=== PATIENT | female | born 1970 | race African-American/Black ===

== ENCOUNTER 2016-09-11 00:22 | Emergency (ER) | payer OTHER ==
[~2016-09-11 00:22] MED LIST: AMLO10TA2 PO; ASPI1TAB69 PO; CARV25TA PO; FURO1TAB62 PO; LISI40TA PO; POTA10TA2 PO
[2016-09-11 00:25] VITALS: BP 139/82; PULSE 66; RESP 18; TEMP 98.6; O2SAT 97
--- NOTE | 2016-09-11 01:25 | PD ---
HPI Chief Complaint: Cardiac Complaint Time Seen by Provider: 01:25 Travel History International Travel<30 days: No Contact w/Intl Traveler<30days: No Traveled to known affect area: No History of Present Illness HPI 46-year-old female came to the emergency room with history of chest pain, difficulty breathing because she thinks she is in congestive heart failure. Patient has history of congestive heart failure and says that she is been unable to fill her blood pressure medication and Lasix prescription since she does not have a primary care doctor. Her vital signs were stable in the ER. She did not look to be in any severe distress. Pain is nonradiating and substernal. No associated diaphoresis or syncopal episode. PFSH Past Medical History Narrative Medical List of her past medical history as reviewed from the nursing note. Hx Anticoagulant Therapy: Yes (81 ASA) Anxiety: No Depression: No Heart Rhythm Problems: No Cardiac Catheterization: No Cardiovascular Problems: Yes (CHF) High Cholesterol: Yes Chemotherapy: No Chest Pain: No Congestive Heart Failure: Yes COPD: Yes Diabetes: No Diminished Hearing: No Endocrine: No Genitourinary: No Hypertension: Yes Immune Disorder: No Musculoskeletal: No Neurologic: No Psychiatric: No Reproductive: No Respiratory: Yes (COPD) Radiation Therapy: No Sleep Apnea: No Thyroid Disease: No Past Surgical History Coronary Artery Bypass Graft: No Other Surgery: No Social History Alcohol Use: Yes (OCCASIONALLY) Tobacco Use: Yes (< 1/2 PPD) Substance Use: No Allergies-Medications (Allergen,Severity, Reaction): Coded Allergies: No Known Allergies (Verified , 06/09/16) Comments No known drug allergies. Reported Meds & Prescriptions Reported Meds & Active Scripts Active Potassium Chloride ER (Potassium Chloride) 10 Meq Tab 10 Meq PO DAILY Carvedilol 25 Mg Tab 25 Mg PO BID Amlodipine (Amlodipine Besylate) 10 Mg Tab 10 Mg PO DAILY Reported Carvedilol 25 Mg Tab 25 Mg PO BID Aspirin 81 Mg Tabdr 81 Mg PO DAILY Lasix (Furosemide) 20 Mg Tab 20 Mg PO DAILY Lisinopril 40 Mg Tab 40 Mg PO DAILY Amlodipine (Amlodipine Besylate) 10 Mg Tab 10 Mg PO BID Narrative Medication List of her home medications reviewed from the nursing note. Review of Systems Except as stated in HPI: all other systems reviewed are Neg Physical Exam Narrative GENERAL: Awake, alert, obese, no obvious distress SKIN: Warm and dry. HEAD: Atraumatic. Normocephalic. EYES: Pupils equal and round. No scleral icterus. No injection or drainage. ENT: No nasal bleeding or discharge. Mucous membranes pink and moist. NECK: Trachea midline. No JVD. CARDIOVASCULAR: Regular rate and rhythm. No murmur appreciated. RESPIRATORY: No accessory muscle use. Clear to auscultation. Breath sounds equal bilaterally. GASTROINTESTINAL: Abdomen soft, non-tender, nondistended. Hepatic and splenic margins not palpable. MUSCULOSKELETAL: No obvious deformities. No clubbing. No cyanosis. No edema. NEUROLOGICAL: Awake and alert. No obvious cranial nerve deficits. Motor grossly within normal limits. Normal speech. PSYCHIATRIC: Appropriate mood and affect; insight and judgment normal. Data Data Last Documented VS Vital Signs Date Time Temp Pulse Resp B/P Pulse Ox O2 Delivery O2 Flow Rate FiO2 09/11/16 01:40 99 Room Air 09/11/16 01:35 73 18 127/75 09/11/16 00:25 98.6 Orders Electrocardiogram (09/11/16 00:46) Basic Metabolic Panel (Bmp) (09/11/16 01:34) B-Type Natriuretic Peptide (09/11/16 01:34) Ckmb (Isoenzyme) Profile (09/11/16 01:34) Complete Blood Count With Diff (09/11/16 01:34) Magnesium (Mg) (09/11/16 01:34) Prothrombin Time / Inr (Pt) (09/11/16 01:34) Act Partial Throm Time (Ptt) (09/11/16 01:34) Troponin I (09/11/16 01:34) Chest, Single Ap (09/11/16 01:34) Ecg Monitoring (09/11/16 01:34) Bilateral Bp Monitoring (09/11/16 01:34) Iv Access Insert/Monitor (09/11/16 01:34) Oximetry (09/11/16 01:34) Oxygen Administration (09/11/16 01:34) Aspirin Chew (Aspirin Chew) (09/11/16 01:45) Sodium Chloride 0.9% Flush (Ns Flush) (09/11/16 01:45) Drug Screen, Random Urine (09/11/16 01:35) CKMB (09/11/16 01:44) CKMB% (09/11/16 01:44) Labs Laboratory Tests Test 09/11/16 01:44 White Blood Count 8.7 TH/MM3 Red Blood Count 4.36 MIL/MM3 Hemoglobin 13.4 GM/DL Hematocrit 39.0 % Mean Corpuscular Volume 89.4 FL Mean Corpuscular Hemoglobin 30.7 PG Mean Corpuscular Hemoglobin 34.4 % Concent Red Cell Distribution Width 15.1 % Platelet Count 207 TH/MM3 Mean Platelet Volume 9.3 FL Neutrophils (%) (Auto) 63.0 % Lymphocytes (%) (Auto) 22.2 % Monocytes (%) (Auto) 9.7 % Eosinophils (%) (Auto) 4.5 % Basophils (%) (Auto) 0.6 % Neutrophils # (Auto) 5.5 TH/MM3 Lymphocytes # (Auto) 1.9 TH/MM3 Monocytes # (Auto) 0.8 TH/MM3 Eosinophils # (Auto) 0.4 TH/MM3 Basophils # (Auto) 0.1 TH/MM3 CBC Comment DIFF FINAL Differential Comment Prothrombin Time 11.4 SEC Prothromb Time International 1.0 RATIO Ratio Activated Partial 27.6 SEC Thromboplast Time Sodium Level 140 MEQ/L Potassium Level 3.3 MEQ/L Chloride Level 104 MEQ/L Carbon Dioxide Level 28.4 MEQ/L Anion Gap 8 MEQ/L Blood Urea Nitrogen 26 MG/DL Creatinine 1.13 MG/DL Estimat Glomerular Filtration 63 ML/MIN Rate Random Glucose 99 MG/DL Calcium Level 9.2 MG/DL Magnesium Level 2.2 MG/DL Total Creatine Kinase 106 U/L Creatine Kinase MB 1.2 NG/ML Troponin I 0.02 NG/ML B-Type Natriuretic Peptide 25 PG/ML Urine Opiates Screen NEG Urine Barbiturates Screen NEG Urine Amphetamines Screen NEG Urine Benzodiazepines Screen NEG Urine Cocaine Screen POS Urine Cannabinoids Screen NEG MDM Medical Decision Making Medical Screen Exam Complete: Yes Emergency Medical Condition: Yes Medical Record Reviewed: Yes Interpretation(s) Twelve-lead EKG was reviewed by me. Normal sinus rhythm, LVH, left axis deviation, LV strain pattern, long QTC, interventricular conduction delay unchanged from April 2016. Heart rate of 69 bpm. Differential Diagnosis ACS, non-STEMI, CHF Narrative Course 2:18 AM awaiting for the blood test results and the chest x-ray to be done and resulted. 2:50 AM patient has been admitted in the past few times for chest pain and had stress test done which were negative. Her cardiac enzymes are negative today. She did test positive for cocaine. I'm going to discharge her home. In my opinion, this chest pain is related to her cocaine abuse. Procedures EKG Prior to Arrival: Yes Diagnosis Primary Impression: cocaine induced chest pain Additional Impression: Cocaine abuse Referrals: Primary Care Physician 2 days Additional Instructions: To have cardiomyopathy and cocaine is extremely harmful and even fatal with such condition. Please follow-up with your primary care. Med/Other Pt SpecificInfo: No Change to Meds Disposition: 01 DISCHARGE HOME Condition: Stable Darek Pickett MD Sep 11, 2016 01:25
[2016-09-11 01:35] VITALS: BP 127/75; PULSE 73; RESP 18; O2SAT 99
[2016-09-11 01:40] VITALS: O2SAT 99
[2016-09-11] MEDS ORDERED: SODIUM CHLORIDE 0.9% FLUSH 5 ML FLUSH IVF PRN (01:45)
[2016-09-11] MEDS ORDERED: ASPIRIN 81 MG CHEW TAB PO ONE (01:45)
[2016-09-11 02:06] LABS: AUTOMATED NEUTROPHIL # 5.5 TH/MM3 (1.8-7.7); BASOPHIL # 0.1 TH/MM3 (0-0.2); BASOPHIL % 0.6 % (0.0-2.0); EOSINOPHIL # 0.4 TH/MM3 (0-0.4); EOSINOPHIL % 4.5 % (0.0-4.0); HEMO FLAGS DIFF FINAL; LYMPH % 22.2 % (9.0-44.0); LYMPHOCYTE # 1.9 TH/MM3 (1.0-4.8); MEAN CELL VOLUME 89.4 FL (80.0-100.0); MEAN CORPUSCULAR HEMOGLOBIN 30.7 PG (27.0-34.0); MEAN CORPUSCULAR HGB CONC 34.4 % (32.0-36.0); MONO % 9.7 % (0.0-8.0); PLATELET COUNT 207 TH/MM3 (150-450); RED BLOOD COUNT 4.36 MIL/MM3 (4.00-5.30); RED CELL DISTRIBUTION WIDTH 15.1 % (11.6-17.2); WHITE BLOOD COUNT 8.7 TH/MM3 (4.0-11.0)
[2016-09-11 02:08] LABS: AMPHETAMINE, URINE NEG (NEG); BARBITURATES, URINE NEG (NEG); COCAINE, URINE POS (NEG)
[2016-09-11 02:09] LABS: APTT (PATIENT) 27.6 SEC (24.3-30.1); PROTHROMBIN TIME - PATIENT 11.4 SEC (9.8-11.6)
[2016-09-11 02:15] LABS: ANION GAP 8 MEQ/L (5-15); BICARBONATE 28.4 MEQ/L (21.0-32.0); BLOOD UREA NITROGEN 26 MG/DL (7-18); CHLORIDE 104 MEQ/L (98-107); GLOMERULAR FILTRATION RATE 63 ML/MIN (>89); MAGNESIUM 2.2 MG/DL (1.5-2.5); POTASSIUM 3.3 MEQ/L (3.5-5.1); SODIUM (NA) 140 MEQ/L (136-145)
[2016-09-11 02:18] LABS: CREATINE KINASE 106 U/L (26-192)
[2016-09-11 02:32] LABS: CKMB 1.2 NG/ML (0.5-3.6)
--- NOTE | 2016-09-11 02:34 | RADRPT ---
EXAM DATE/TIME: 09/11/2016 01:59 [facility] COMPARISON: CHEST SINGLE AP, June 09, 2016, 13:36. INDICATIONS : Chest pain. MEDICAL HISTORY : None. SURGICAL HISTORY : None. ENCOUNTER: Initial ACUITY: 1 day PAIN SCORE: 4/10 LOCATION: chest substernal. FINDINGS: A single view of the chest demonstrates the lungs to be symmetrically aerated without evidence of mas s, infiltrate or effusion. No evidence of pneumothorax. The cardiomediastinal contours are unremark able. Osseous structures are intact. CONCLUSION: The lungs are clear. Julian Crodova MD on September 11, 2016 at 2:31 Board Certified Radiologist. This report was verified electronically.
--- NOTE | 2016-09-11 14:39 | EKG ---
Date Performed: 09/11/2016 Time Performed: 00:45:44 PTAGE: 46 years EKG: Sinus rhythm INTRAVENTRICULAR CONDUCTION DELAY LEFT VENTRICULAR HYPERTROPHY AND ST-T CHANGE ABNORMAL ECG Since PREVIOUS TRACING , no significant change noted DOCTOR: Carola Schuler Interpretating Date/Time 09/11/2016 14:35:11
== END 2016-09-11 03:08 | disposition home or self-care (01) ==
LOC: NEPC 00:22
DX: R07.9 Chest pain, unspecified (principal); R94.31 Abnormal electrocardiogram [ECG] [EKG]; I50.9 Heart failure, unspecified; E78.00 Pure hypercholesterolemia, unspecified; J44.9 Chronic obstructive pulmonary disease, unspecified; I10 Essential (primary) hypertension; F14.10 Cocaine abuse, uncomplicated; F17.210 Nicotine dependence, cigarettes, uncomplicated; Z79.82 Long term (current) use of aspirin
CPT/HCPCS: 71010; 80048; 80307; 82550; 82552; 83735; 83880; 84484; 85025; 85610; 85730; 93005